=== PATIENT | female | born 1990 | race Caucasian/White ===

== ENCOUNTER 2017-04-03 00:50 | Emergency (ER) | payer OTHER ==
[~2017-04-03] VITALS: Ht 167.6 cm; Wt 72.6 kg
[~2017-04-03 00:50] MED LIST: ANUSOL-HC CREAM30 G1 EXT; COLACE PO; NO MEDICATIONS
== END 2017-04-03 02:07 | disposition home or self-care (01) ==
LOC: SED 00:50
DX: S05.01XA Injury of conjunctiva and corneal abrasion without foreign body, right eye, initial encounter (principal); F17.200 Nicotine dependence, unspecified, uncomplicated; Z23 Encounter for immunization; W50.4XXA Accidental scratch by another person, initial encounter
CPT/HCPCS: 90471; 90715; 99283